=== PATIENT | female | born 1965 | race Hispanic/Latino ===

== ENCOUNTER 2024-02-27 19:31 | Inpatient (IN) | payer BC, SELFPAY ==
[2024-02-27 20:03] LABS: #Basophils 0.04 10x3/uL (0.0-0.2); #Eosinophils Less than 0.03 10x3/uL (0.0-0.7); %Basophils 0.6 % (0.0-1.0); %Eosinophils 0.1 % (0.0-10.0); %Lymphocytes 10.6 % (21.0-51.0); %Monocytes 4.9 % (0.0-10.0); %Neutrophils 83.4 % (42.0-75.0); Hematocrit 44.8 % (36.0-47.0); Hemoglobin 14.7 g/dL (12.0-16.0); Mean Corpuscular HGB CONC 32.8 g/dL (32.0-36.0); Mean Corpuscular Hemoglobin 28.7 pg (27.0-31.0); Mean Corpuscular Volume 87.3 fL (78.0-98.0); Mean Platelet Volume 9.1 fL (7.4-10.4); Platelet Count 323 10x3/uL (130-400); RBC Distribution Width 14.1 % (11.5-14.5); Red Blood Cell (RBC) Count 5.13 mill/uL (4.20-5.40)
[2024-02-27 20:18] LABS: ALT (SGPT) 31 U/L (8-55); AST (SGOT) 30 U/L (5-34); Albumin 3.7 g/dL (3.4-4.8); Alkaline Phosphatase 121 U/L (40-110); Anion Gap 13 mmol/L (10-20); BUN (Urea Nitrogen) 19 mg/dL (9.8-20.1); Bilirubin, Total 0.7 mg/dL (0.2-1.2); Calc. Creatinine Clearance 0 mL/min (70-130); Carbon Dioxide 23 mmol/L (23-31); Chloride 104 mmol/L (98-107); Estimated GFR 81; Globulin 3.6 g/dL (2.4-3.5); Glucose 156 mg/dL (80-115); Magnesium 2.3 mg/dL (1.6-2.6); Potassium 3.3 mmol/L (3.5-5.1); Protein, Total 7.3 g/dL (5.8-8.1); Sodium 137 mmol/L (136-145)
[2024-02-27 20:23] LABS: Troponin I Less than 0.010 ng/mL (< 0.028)
[2024-02-27] MEDS ORDERED: Aspirin Chewable 81 MG TAB ONE (21:23)
[2024-02-27] MEDS ORDERED: Acetaminophen 500 MG TAB ONE (21:39)
[2024-02-27] MEDS ORDERED: Acetaminophen 325 MG TAB PO PRN (23:37)
[2024-02-27] MEDS ORDERED: Nitroglycerin 0.4 MG TAB (25 Tab Bottle) SL PRN (23:37)
[2024-02-27] MEDS ORDERED: Ondansetron PF 4 MG/2 ML Vial IVP PRN (23:37)
[2024-02-28] MEDS: Potassium Chloride 20 MEQ TAB PO SCH (00:53)
[2024-02-28 01:56] VITALS: BMI 32.7
[2024-02-28 02:01] LABS: Troponin I Less than 0.010 ng/mL (< 0.028)
[2024-02-28] MEDS: Lidocaine 2% Viscous Solution 10 ML, Aluminum & Magnesium Hydroxide 30 ML SSW SCH (02:15)
[2024-02-28 02:30] LABS: Magnesium 2.4 mg/dL (1.6-2.6)
[2024-02-28 04:51] LABS: #Basophils 0.03 10x3/uL (0.0-0.2); %Basophils 0.4 % (0.0-1.0); %Eosinophils 0.6 % (0.0-10.0); %Lymphocytes 14.5 % (21.0-51.0); %Monocytes 7.5 % (0.0-10.0); %Neutrophils 76.6 % (42.0-75.0); Hematocrit 43.2 % (36.0-47.0); Hemoglobin 14.1 g/dL (12.0-16.0); Mean Corpuscular HGB CONC 32.6 g/dL (32.0-36.0); Mean Corpuscular Hemoglobin 28.7 pg (27.0-31.0); Mean Platelet Volume 9.4 fL (7.4-10.4); Platelet Count 286 10x3/uL (130-400); RBC Distribution Width 14.1 % (11.5-14.5); Red Blood Cell (RBC) Count 4.91 mill/uL (4.20-5.40)
[2024-02-28 05:29] LABS: Troponin I Less than 0.010 ng/mL (< 0.028)
[2024-02-28 05:42] LABS: Anion Gap 14 mmol/L (10-20); BUN (Urea Nitrogen) 15 mg/dL (9.8-20.1); Calc. Creatinine Clearance 111 mL/min (70-130); Calcium 8.6 mg/dL (7.8-10.44); Carbon Dioxide 23 mmol/L (23-31); Cardiac Risk 3.8 (Less than 4.5); Chloride 104 mmol/L (98-107); Cholesterol 110 mg/dl (< 200 Desired); Estimated GFR 88; Glucose 112 mg/dL (80-115); HDL Cholesterol 29 mg/dL (>60 Neg Risk); LDL Cholesterol, Calculated 57 mg/dL; Potassium 3.5 mmol/L (3.5-5.1); Sodium 137 mmol/L (136-145); Triglycerides 118 mg/dL (Less than 150)
[2024-02-28] MEDS: Aspirin Chewable 81 MG TAB PO SCH (08:37)
[2024-02-28] MEDS: Famotidine 20 MG TAB PO SCH (08:37)
[2024-02-28] MEDS ORDERED: Iopamidol 370 76% 100 ML VIAL ONE (09:13)
[2024-02-28] MEDS: Sucralfate 1 GM TAB PO SCH (11:30)
[2024-02-28] MEDS: Pantoprazole 40 MG VIAL IVP SCH (12:23)
[2024-02-28 15:26] VITALS: BP 114/61; TEMP 97.9
[2024-02-29] MEDS ORDERED: Pantoprazole 40 MG VIAL IVP SCH (09:00)
== END 2024-02-28 19:00 | disposition home or self-care (01) | DRG 313 ==
LOC: ERS 19:31 → PCU 23:37 → OBSVTOIN 02-28 11:35
PROVIDERS: ADMIT Family Medicine; ATTEND Student in an Organized Health Care Education/Training Program
DX: R07.89 Other chest pain (principal); I25.10 Atherosclerotic heart disease of native coronary artery without angina pectoris; I10 Essential (primary) hypertension; E78.5 Hyperlipidemia, unspecified; E87.6 Hypokalemia; E11.9 Type 2 diabetes mellitus without complications; K21.9 Gastro-esophageal reflux disease without esophagitis; R00.1 Bradycardia, unspecified; Z79.82 Long term (current) use of aspirin; Z79.899 Other long term (current) drug therapy
CPT/HCPCS: 36415; 36416; 71045; 74177; 80048; 80053; 80061; 83735; 84443; 84484; 85025; 87428; 93005; 93306; 94760; G0378; J2470